=== PATIENT | male | born 1955 | race Two or more races ===

== ENCOUNTER 2020-12-15 09:56 | Inpatient (IN) | payer OTHER ==
[~2020-12-15] VITALS: Ht 205.7 cm; Wt 116.8 kg
[2020-12-15 10:49] LABS: Basophils # (auto) 0.2 10 ^3/uL (0-0.2); Basophils % (auto) 1.3 % (0.0-2.0); Eosinophils # (auto) 0.3 10 ^3/uL (0-0.8); Eosinophils % (auto) 2.3 % (0.0-7.0); Hematocrit 33.6 % (41.0-53.0); Hemoglobin 11.4 g/dL (13.5-17.5); Lymphocytes # (auto) 2.9 10 ^3/uL (0.4-5.4); Lymphocytes % (auto) 23.9 % (10.0-50.0); Mean Corpuscular Volume 91.2 fL (80.0-100.0); Monocytes % (auto) 7.9 % (0.0-12.0); Neutrophils # (auto) 7.8 10 ^3/uL (1.6-8.6); Neutrophils % (auto) 64.6 % (37.0-80.0); Nucleated Red Blood Cells % 0.1 %; Red Blood Cells 3.68 10^6/uL (4.5-5.90); Red Cell Distribution Width 15.1 % (11.8-14.3)
[2020-12-15 11:03] LABS: Albumin 3.1 g/dL (3.4-5.0); Anion Gap 4 (5-15); Blood Urea Nitrogen 9 mg/dL (7-18); Calcium 8.3 mg/dL (8.5-10.1); Carbon Dioxide 26 mmol/L (21-32); Chloride 111 mmol/L (98-107); Glucose 183 mg/dL (74-106); Potassium 3.3 mmol/L (3.5-5.1); Sodium 141 mmol/L (136-145)
[2020-12-15 11:07] LABS: Alanine Aminotransferase 19 U/L (16-61); Alkaline Phosphatase 135 U/L (45-117); Aspartate Aminotransferase 16 U/L (15-37); BUN/Creatinine Ratio 7.8; Bilirubin, Total 0.4 mg/dL (0.2-1.0); GFR African American 82 mL/min; GFR Non-African American 68 mL/min; Total Protein 7.7 g/dL (6.4-8.2)
[2020-12-15] MEDS ORDERED: POTASSIUM EFFERVESENT TAB 25 MEQ PO ONE ×2 (12:15→14:00)
[2020-12-15] MEDS ORDERED: FUROSEMIDE 40 MG/4 ML VIAL IV ONE (12:15)
[2020-12-15] MEDS ORDERED: AZITHROMYCIN 500MG/ 250ML 250 ML IV ONE (12:15)
[2020-12-15] MEDS ORDERED: cefTRIAXone 1GM/50ML D5W 50 ML IV ONE (12:15)
[2020-12-15] MEDS ORDERED: MORPHINE SULFATE INJECTION 2 MG/ML SYRG IV PRN (13:00)
[2020-12-15] MEDS ORDERED: NITROGLYCERIN 0.4 MG SL TAB SL PRN (13:00)
[2020-12-15 13:26] LABS: Urine Bacteria NONE SEEN /hpf (None Seen); Urine Blood TRACE /uL (Negative); Urine Specific Gravity 1.012 (1.001-1.035); Urine WBC 1 /hpf (0 - 3)
[2020-12-15] MEDS ORDERED: ALBUTEROL SULF HFA 90MCG INH 200DOSE IN PRN (13:45)
[2020-12-15] MEDS ORDERED: ENALAPRIL MALEATE 10 MG TAB PO ONE (14:00)
[2020-12-15] MEDS ORDERED: ACETAMINOPHEN 500 MG TAB PO PRN (14:00)
[2020-12-15] MEDS ORDERED: DEXTROSE (50%) 50ML SYRG IV PRN (14:00)
[2020-12-15] MEDS ORDERED: TEMAZEPAM 15 MG CAP PO PRN (14:00)
[2020-12-15] MEDS ORDERED: ENALAPRILAT 1.25 MG/ML-1ML VIAL IV PRN (14:00)
[2020-12-15] MEDS ORDERED: traMADol HCL 50 MG TAB PO PRN (14:00)
[2020-12-15] MEDS ORDERED: PROMETHAZINE HCL 25 MG/ML 1ML IV PRN (14:00)
[2020-12-15] MEDS ORDERED: LACTULOSE 20Gm/30ML SOLN PO PRN (14:00)
[2020-12-15] MEDS: CLINDAMYCIN 600MG IV 50 ML IV SCH ×2 (15:03→22:00)
[2020-12-15] MEDS: SODIUM CHLOR 0.9% PF (SALINE LOCK) 10ML VIAL/SYR IV SCH ×2 (15:03→22:00)
[2020-12-15] MEDS: ENALAPRIL MALEATE 10 MG TAB PO SCH ×2 (15:20→22:00)
[2020-12-15 16:05] VITALS: BP 183/99
[2020-12-15 17:30] VITALS: BP 157/83
[2020-12-15] MEDS: levoFLOXacin 500MG 100 ML IV SCH (17:31)
[2020-12-15] MEDS: ACCU-CHEK COMFORT CURVE STRIP VI SCH ×2 (17:32→22:00)
[2020-12-15] MEDS: InsuLIN REG 1unit/0.01ml Soln (100units/ml) SC SCH ×2 (17:35→22:00)
[2020-12-15 21:49] VITALS: BP 157/83
[2020-12-15 22:00] VITALS: BP 166/95
[2020-12-15] MEDS: CARVEDILOL 3.125 MG TAB PO SCH (22:00)
[2020-12-15] MEDS: FLORASTOR (S. BOULARDII) 250 MG CAP PO SCH (22:00)
[2020-12-15] MEDS ORDERED: BUDESONIDE (INHALATION) 180 MCG IH IN SCH (22:00)
[2020-12-15] MEDS: ENOXAPARIN SOD 40 MG/0.4 ML SYRINGE SC SCH (22:00)
[2020-12-16] VITALS (7 sets, daily range): BP systolic 146–173; BP diastolic 80–97
[2020-12-16 01:48] LABS: Albumin 2.7 g/dL (3.4-5.0); Potassium 3.8 mmol/L (3.5-5.1)
[2020-12-16 01:50] LABS: BUN/Creatinine Ratio 8.8
[2020-12-16 01:52] LABS: Bilirubin, Total 0.4 mg/dL (0.2-1.0); Total Protein 6.6 g/dL (6.4-8.2)
[2020-12-16] MEDS: SODIUM CHLOR 0.9% PF (SALINE LOCK) 10ML VIAL/SYR IV SCH ×3 (06:00→22:00)
[2020-12-16] MEDS: InsuLIN REG 1unit/0.01ml Soln (100units/ml) SC SCH ×4 (07:00→22:00)
[2020-12-16] MEDS: ACCU-CHEK COMFORT CURVE STRIP VI SCH ×4 (07:00→22:00)
[2020-12-16 07:04] LABS: Basophils # (auto) 0 10 ^3/uL (0-0.2); Basophils % (auto) 0.3 % (0.0-2.0); Eosinophils # (auto) 0.3 10 ^3/uL (0-0.8); Hematocrit 32.1 % (41.0-53.0); Hemoglobin 10.8 g/dL (13.5-17.5); Lymphocytes # (auto) 2.1 10 ^3/uL (0.4-5.4); Lymphocytes % (auto) 22.8 % (10.0-50.0); Mean Corpuscular Hemoglobin 30.3 pg (28.0-32.0); Mean Corpuscular Hgb Conc. 33.5 g/dL (32.0-36.0); Mean Corpuscular Volume 90.6 fL (80.0-100.0); Monocytes # (auto) 0.7 10 ^3/uL (0-1.3); Monocytes % (auto) 7.8 % (0.0-12.0); Neutrophils # (auto) 6.1 10 ^3/uL (1.6-8.6); Neutrophils % (auto) 66.1 % (37.0-80.0); Nucleated Red Blood Cells % 0.1 %; Red Blood Cells 3.55 10^6/uL (4.5-5.90); Red Cell Distribution Width 14.6 % (11.8-14.3); White Blood Cell 9.2 10^3/uL (4.4-10.8)
[2020-12-16 07:21] LABS: Albumin 2.8 g/dL (3.4-5.0); Calcium 8.2 mg/dL (8.5-10.1); Potassium 4.1 mmol/L (3.5-5.1)
[2020-12-16 07:29] LABS: BUN/Creatinine Ratio 10.8; Bilirubin, Total 0.4 mg/dL (0.2-1.0); Total Protein 7.1 g/dL (6.4-8.2)
[2020-12-16 08:16] LABS: Cholesterol 184 mg/dL (< 200)
[2020-12-16 08:19] LABS: HDL Cholesterol 48 mg/dL (40-59); LDL Cholesterol 119 mg/dL (< 100); Triglycerides 100 mg/dL (< 150)
[2020-12-16] MEDS: levoFLOXacin 500MG 100 ML IV SCH (09:18)
[2020-12-16] MEDS: FUROSEMIDE 40 MG/4 ML VIAL IV SCH (09:24)
[2020-12-16] MEDS: ENOXAPARIN SOD 40 MG/0.4 ML SYRINGE SC SCH (09:26)
[2020-12-16] MEDS: ENALAPRIL MALEATE 10 MG TAB PO SCH ×2 (09:27→22:00)
[2020-12-16] MEDS: CARVEDILOL 3.125 MG TAB PO SCH ×2 (09:28→21:30)
[2020-12-16] MEDS: ASPirin 81 mg TAB PO SCH (09:28)
[2020-12-16] MEDS: FLORASTOR (S. BOULARDII) 250 MG CAP PO SCH (09:37)
[2020-12-16] MEDS ORDERED: DexAMETHasone SOD PHOS 10MG/1ML VIAL INJ IV SCH (10:00)
[2020-12-16] MEDS ORDERED: POTASSIUM CHL 20 Meq TABLET PO SCH (10:00)
[2020-12-16] MEDS ORDERED: ASCORBIC ACID 1,000 MG TAB PO SCH (10:00)
[2020-12-16] MEDS ORDERED: CHOLECALCIFEROL (VITD3) 2,000 UNIT CAP/TAB PO SCH (10:00)
[2020-12-16] MEDS ORDERED: ENALAPRIL MALEATE 2.5 MG TAB PO SCH (10:00)
[2020-12-16] MEDS ORDERED: ZINC SULFATE 220mg CAP or TAB PO SCH (10:00)
[2020-12-16] MEDS ORDERED: IOPAMIDOL 76 % (ISOVUE-370) 100ML BTL IV ONE (12:07)
[2020-12-16 15:45] LABS: INR 1.08 (0.9-1.15)
[2020-12-16] MEDS: ATORVASTATIN 20 MG TAB PO SCH (22:00)
[2020-12-17 05:00] VITALS: BP 132/89
[2020-12-17] MEDS: SODIUM CHLOR 0.9% PF (SALINE LOCK) 10ML VIAL/SYR IV SCH ×3 (06:00→22:00)
[2020-12-17 06:53] LABS: Calcium 8.5 mg/dL (8.5-10.1); Potassium 3.9 mmol/L (3.5-5.1)
[2020-12-17 06:55] LABS: BUN/Creatinine Ratio 12.9
[2020-12-17] MEDS: ACCU-CHEK COMFORT CURVE STRIP VI SCH ×3 (07:00→22:00)
[2020-12-17] MEDS: InsuLIN REG 1unit/0.01ml Soln (100units/ml) SC SCH ×3 (07:17→22:00)
[2020-12-17 09:00] VITALS: BP 155/89
[2020-12-17] MEDS: CARVEDILOL 3.125 MG TAB PO SCH ×2 (09:17→22:00)
[2020-12-17] MEDS: ENOXAPARIN SOD 40 MG/0.4 ML SYRINGE SC SCH (09:18)
[2020-12-17] MEDS: ASPirin 81 mg TAB PO SCH (09:18)
[2020-12-17] MEDS: levoFLOXacin 500MG 100 ML IV SCH (09:20)
[2020-12-17] MEDS: ASCORBIC ACID 500 MG TAB PO SCH (09:30)
[2020-12-17] MEDS: FUROSEMIDE 40 MG/4 ML VIAL IV SCH (10:00)
[2020-12-17] MEDS: ENALAPRIL MALEATE 10 MG TAB PO SCH (10:00)
[2020-12-17] MEDS ORDERED: hydrALAZINE HCL 20 MG/ML VL IV PRN (11:30)
[2020-12-17] MEDS ORDERED: NIFEdipine ER 30 MG TAB PO ONE (11:30)
[2020-12-17] MEDS ORDERED: INSULIN LANTUS (GLARGINE) 1 /0.01ml (100units/ml) SC ONE (11:45)
[2020-12-17] MEDS ORDERED: DEXTROSE (50%) 50ML SYRG IV PRN (11:45)
[2020-12-17 12:45] VITALS: BP 154/81
[2020-12-17 16:41] VITALS: BP 153/87
[2020-12-17 22:00] VITALS: BP 146/80
[2020-12-17] MEDS: INSULIN LANTUS (GLARGINE) 1 /0.01ml (100units/ml) SC SCH (22:00)
[2020-12-17] MEDS: ATORVASTATIN 20 MG TAB PO SCH (22:00)
[2020-12-18 05:00] VITALS: BP 119/57
[2020-12-18 05:27] LABS: Potassium 3.8 mmol/L (3.5-5.1)
[2020-12-18 05:31] LABS: BUN/Creatinine Ratio 13.2; Calcium 8.4 mg/dL (8.5-10.1)
[2020-12-18] MEDS: SODIUM CHLOR 0.9% PF (SALINE LOCK) 10ML VIAL/SYR IV SCH ×3 (06:00→22:00)
[2020-12-18] MEDS: InsuLIN REG 1unit/0.01ml Soln (100units/ml) SC SCH ×4 (07:00→22:00)
[2020-12-18] MEDS: ACCU-CHEK COMFORT CURVE STRIP VI SCH ×4 (07:00→22:00)
[2020-12-18] MEDS: INSULIN LANTUS (GLARGINE) 1 /0.01ml (100units/ml) SC SCH ×2 (07:00→22:00)
[2020-12-18 08:00] VITALS: BP 142/76
[2020-12-18 08:56] VITALS: BP 142/76
[2020-12-18] MEDS: FUROSEMIDE 40 MG/4 ML VIAL IV SCH (09:34)
[2020-12-18] MEDS: ASPirin 81 mg TAB PO SCH (09:35)
[2020-12-18] MEDS: levoFLOXacin 500MG 100 ML IV SCH (09:35)
[2020-12-18] MEDS: CARVEDILOL 3.125 MG TAB PO SCH ×2 (09:36→22:00)
[2020-12-18] MEDS: ASCORBIC ACID 500 MG TAB PO SCH (09:37)
[2020-12-18] MEDS: ENOXAPARIN SOD 40 MG/0.4 ML SYRINGE SC SCH (09:37)
[2020-12-18] MEDS: NIFEdipine ER 30 MG TAB PO SCH (09:37)
[2020-12-18 13:00] VITALS: BP 136/79
[2020-12-18 17:00] VITALS: BP 138/73
[2020-12-18 22:00] VITALS: BP 142/85
[2020-12-18] MEDS: ATORVASTATIN 20 MG TAB PO SCH (22:00)
[2020-12-19 05:00] VITALS: BP 146/80
[2020-12-19] MEDS: SODIUM CHLOR 0.9% PF (SALINE LOCK) 10ML VIAL/SYR IV SCH ×3 (06:00→22:00)
[2020-12-19] MEDS: InsuLIN REG 1unit/0.01ml Soln (100units/ml) SC SCH ×4 (06:50→22:00)
[2020-12-19] MEDS: ACCU-CHEK COMFORT CURVE STRIP VI SCH ×4 (06:51→22:00)
[2020-12-19] MEDS: INSULIN LANTUS (GLARGINE) 1 /0.01ml (100units/ml) SC SCH ×2 (06:51→22:00)
[2020-12-19 07:21] LABS: Basophils # (auto) 0 10 ^3/uL (0-0.2); Basophils % (auto) 0.1 % (0.0-2.0); Eosinophils # (auto) 0.3 10 ^3/uL (0-0.8); Eosinophils % (auto) 2.9 % (0.0-7.0); Hematocrit 34.6 % (41.0-53.0); Hemoglobin 11.3 g/dL (13.5-17.5); Lymphocytes # (auto) 2.2 10 ^3/uL (0.4-5.4); Lymphocytes % (auto) 24.8 % (10.0-50.0); Mean Corpuscular Hemoglobin 29.7 pg (28.0-32.0); Mean Corpuscular Hgb Conc. 32.8 g/dL (32.0-36.0); Mean Corpuscular Volume 90.5 fL (80.0-100.0); Monocytes # (auto) 0.7 10 ^3/uL (0-1.3); Monocytes % (auto) 7.8 % (0.0-12.0); Neutrophils # (auto) 5.8 10 ^3/uL (1.6-8.6); Neutrophils % (auto) 64.4 % (37.0-80.0); Nucleated Red Blood Cells % 0.1 %; Red Blood Cells 3.82 10^6/uL (4.5-5.90); Red Cell Distribution Width 14.6 % (11.8-14.3)
[2020-12-19 07:34] LABS: BUN/Creatinine Ratio 15.7; INR 1.05 (0.9-1.15); Partial Thromboplastin Time 29.7 sec (23.0-31.2)
[2020-12-19 08:35] VITALS: BP 150/78
[2020-12-19] MEDS ORDERED: IODIXANOL 320MG/ML 100ML BTL IV ONE ×2 (09:50→10:43)
[2020-12-19] MEDS ORDERED: LIDOCAINE 2%HCL (LOCAL ANESTH.) INJ 20ML MDV ONE (09:50)
[2020-12-19] MEDS ORDERED: SODIUM CHL 0.9% 0 ML ONE (09:56)
[2020-12-19] MEDS ORDERED: MIDAZOLAM HCL 2MG/2ML 2ml VIAL (1mg/ml) ONE ×2 (09:56→10:53)
[2020-12-19] MEDS ORDERED: ANGIOMAX 250 MG VIAL IV ONE ×2 (09:56→10:56)
[2020-12-19] MEDS ORDERED: fentaNYL CITRATE 100 MCG/2 ML VL ONE ×2 (09:56→10:53)
[2020-12-19] MEDS: FUROSEMIDE 40 MG/4 ML VIAL IV SCH (10:00)
[2020-12-19] MEDS: ASCORBIC ACID 500 MG TAB PO SCH (10:00)
[2020-12-19] MEDS: levoFLOXacin 500MG 100 ML IV SCH (10:00)
[2020-12-19] MEDS ORDERED: diphenhdrAMINE HCL 50 MG/1 ML VL ONE (10:27)
[2020-12-19] MEDS ORDERED: hydrALAZINE HCL 20 MG/ML VL ONE (10:29)
[2020-12-19] MEDS ORDERED: SODIUM CHL 0.9% 100 ML ONE (10:58)
[2020-12-19] MEDS ORDERED: CLOPIDOGREL 300 MG TAB ONE (11:23)
[2020-12-19] MEDS: NIFEdipine ER 30 MG TAB PO SCH (12:00)
[2020-12-19] MEDS: ASPirin 81 mg TAB PO SCH (12:00)
[2020-12-19] MEDS: CARVEDILOL 3.125 MG TAB PO SCH ×2 (12:01→22:00)
[2020-12-19 16:35] VITALS: BP 144/78
[2020-12-19 22:00] VITALS: BP 150/77
[2020-12-19] MEDS: ATORVASTATIN 20 MG TAB PO SCH (22:00)
[2020-12-19] MEDS: ENALAPRIL MALEATE 10 MG TAB PO SCH (22:00)
[2020-12-19] MEDS: CILOSTAZOL 100 MG TAB PO SCH (22:00)
[2020-12-19] MEDS: APIXABAN 2.5 MG TAB PO SCH (22:00)
[2020-12-20 05:03] VITALS: BP 137/78
[2020-12-20] MEDS: SODIUM CHLOR 0.9% PF (SALINE LOCK) 10ML VIAL/SYR IV SCH ×3 (06:00→22:00)
[2020-12-20] MEDS: ACCU-CHEK COMFORT CURVE STRIP VI SCH ×4 (07:00→22:00)
[2020-12-20] MEDS: InsuLIN REG 1unit/0.01ml Soln (100units/ml) SC SCH ×4 (07:00→22:00)
[2020-12-20] MEDS: INSULIN LANTUS (GLARGINE) 1 /0.01ml (100units/ml) SC SCH ×2 (07:00→22:29)
[2020-12-20 07:29] LABS: BUN/Creatinine Ratio 16.8; Calcium 8.3 mg/dL (8.5-10.1); Potassium 3.7 mmol/L (3.5-5.1)
[2020-12-20 09:00] VITALS: BP 145/71
[2020-12-20] MEDS ORDERED: CLOPIDOGREL BISULFATE 75 MG TAB PO SCH (10:00)
[2020-12-20] MEDS: levoFLOXacin 500MG 100 ML IV SCH (10:18)
[2020-12-20] MEDS: CARVEDILOL 3.125 MG TAB PO SCH ×2 (10:20→22:28)
[2020-12-20] MEDS: ASCORBIC ACID 500 MG TAB PO SCH (10:21)
[2020-12-20] MEDS: ENALAPRIL MALEATE 10 MG TAB PO SCH ×2 (10:21→22:29)
[2020-12-20] MEDS: APIXABAN 2.5 MG TAB PO SCH ×2 (10:21→22:28)
[2020-12-20] MEDS: CILOSTAZOL 100 MG TAB PO SCH ×2 (10:21→22:28)
[2020-12-20 13:00] VITALS: BP 154/75
[2020-12-20 17:00] VITALS: BP 160/76
[2020-12-20 22:00] VITALS: BP 141/75
[2020-12-20] MEDS: ATORVASTATIN 20 MG TAB PO SCH (22:28)
[2020-12-21 05:00] VITALS: BP 141/73
[2020-12-21] MEDS: InsuLIN REG 1unit/0.01ml Soln (100units/ml) SC SCH ×4 (06:18→22:00)
[2020-12-21 06:22] LABS: Basophils # (auto) 0.1 10 ^3/uL (0-0.2); Basophils % (auto) 0.8 % (0.0-2.0); Eosinophils # (auto) 0.2 10 ^3/uL (0-0.8); Eosinophils % (auto) 2.5 % (0.0-7.0); Hematocrit 33.3 % (41.0-53.0); Hemoglobin 11.2 g/dL (13.5-17.5); Lymphocytes # (auto) 1.8 10 ^3/uL (0.4-5.4); Lymphocytes % (auto) 21.2 % (10.0-50.0); Mean Corpuscular Hemoglobin 30.5 pg (28.0-32.0); Mean Corpuscular Hgb Conc. 33.8 g/dL (32.0-36.0); Mean Corpuscular Volume 90.3 fL (80.0-100.0); Monocytes # (auto) 0.8 10 ^3/uL (0-1.3); Monocytes % (auto) 9.8 % (0.0-12.0); Neutrophils # (auto) 5.6 10 ^3/uL (1.6-8.6); Neutrophils % (auto) 65.7 % (37.0-80.0); Nucleated Red Blood Cells % 0.1 %; Red Blood Cells 3.68 10^6/uL (4.5-5.90); Red Cell Distribution Width 14.8 % (11.8-14.3); White Blood Cell 8.5 10^3/uL (4.4-10.8)
[2020-12-21] MEDS: SODIUM CHLOR 0.9% PF (SALINE LOCK) 10ML VIAL/SYR IV SCH ×3 (06:24→22:12)
[2020-12-21] MEDS: INSULIN LANTUS (GLARGINE) 1 /0.01ml (100units/ml) SC SCH ×2 (06:24→22:17)
[2020-12-21] MEDS: ACCU-CHEK COMFORT CURVE STRIP VI SCH ×4 (06:25→22:15)
[2020-12-21 06:33] LABS: INR 1.05 (0.9-1.15); Partial Thromboplastin Time 31.7 sec (23.0-31.2)
[2020-12-21 06:35] LABS: Potassium 3.7 mmol/L (3.5-5.1)
[2020-12-21 06:40] LABS: Calcium 8.4 mg/dL (8.5-10.1)
[2020-12-21 08:57] VITALS: BP 152/74
[2020-12-21] MEDS: levoFLOXacin 500MG 100 ML IV SCH (09:49)
[2020-12-21] MEDS: CARVEDILOL 3.125 MG TAB PO SCH ×2 (09:50→22:12)
[2020-12-21] MEDS: ENALAPRIL MALEATE 10 MG TAB PO SCH ×2 (09:51→22:14)
[2020-12-21] MEDS: APIXABAN 2.5 MG TAB PO SCH ×2 (10:00→16:46)
[2020-12-21] MEDS: ASCORBIC ACID 500 MG TAB PO SCH (10:00)
[2020-12-21] MEDS: CILOSTAZOL 100 MG TAB PO SCH ×2 (10:00→22:13)
[2020-12-21] MEDS ORDERED: LIDOCAINE 2%HCL (LOCAL ANESTH.) INJ 20ML MDV ONE (12:07)
[2020-12-21] MEDS ORDERED: IODIXANOL 320MG/ML 100ML BTL IV ONE ×2 (12:07→12:46)
[2020-12-21] MEDS ORDERED: fentaNYL CITRATE 100 MCG/2 ML VL ONE ×2 (12:45→13:15)
[2020-12-21] MEDS ORDERED: ANGIOMAX 250 MG VIAL IV ONE ×2 (12:45→13:51)
[2020-12-21] MEDS ORDERED: SODIUM CHL 0.9% 0 ML ONE (12:46)
[2020-12-21] MEDS ORDERED: MIDAZOLAM HCL 2MG/2ML 2ml VIAL (1mg/ml) ONE ×2 (12:46→13:15)
[2020-12-21] MEDS: DOXYCYCLINE 100MG/250ML 250 ML IV SCH (13:45)
[2020-12-21] MEDS ORDERED: hydrALAZINE HCL 20 MG/ML VL ONE ×2 (13:46→14:04)
[2020-12-21] MEDS ORDERED: SODIUM CHL 0.9% 100 ML ONE (13:51)
[2020-12-21] MEDS ORDERED: HYDROmorphone HCL 2 MG/ML VL ONE (14:03)
[2020-12-21] MEDS ORDERED: ONDANSETRON HCL 4 MG/2 ML VIAL ONE (16:00)
[2020-12-21 17:51] VITALS: BP 144/83
[2020-12-21 22:00] VITALS: BP 134/68
[2020-12-21] MEDS: DAKINS QUARTER STR 0.125% (NaHypochlorite) 473 ML TOPICAL SOL TOP SCH (22:00)
[2020-12-21] MEDS: ATORVASTATIN 20 MG TAB PO SCH (22:13)
[2020-12-22] MEDS: DOXYCYCLINE 100MG/250ML 250 ML IV SCH (01:45)
[2020-12-22 05:00] VITALS: BP 123/52
[2020-12-22] MEDS: SODIUM CHLOR 0.9% PF (SALINE LOCK) 10ML VIAL/SYR IV SCH (06:18)
[2020-12-22] MEDS: InsuLIN REG 1unit/0.01ml Soln (100units/ml) SC SCH ×2 (06:18→11:21)
[2020-12-22] MEDS: ACCU-CHEK COMFORT CURVE STRIP VI SCH ×2 (06:18→11:20)
[2020-12-22] MEDS: INSULIN LANTUS (GLARGINE) 1 /0.01ml (100units/ml) SC SCH (06:19)
[2020-12-22 07:15] LABS: BUN/Creatinine Ratio 17.5; Calcium 8.2 mg/dL (8.5-10.1)
[2020-12-22 07:51] VITALS: BP 150/70
[2020-12-22] MEDS: DAKINS QUARTER STR 0.125% (NaHypochlorite) 473 ML TOPICAL SOL TOP SCH (10:04)
[2020-12-22] MEDS: ASCORBIC ACID 500 MG TAB PO SCH (10:05)
[2020-12-22] MEDS: CILOSTAZOL 100 MG TAB PO SCH (10:06)
[2020-12-22] MEDS: CARVEDILOL 3.125 MG TAB PO SCH (10:06)
[2020-12-22] MEDS: APIXABAN 2.5 MG TAB PO SCH (10:06)
[2020-12-22] MEDS: ENALAPRIL MALEATE 10 MG TAB PO SCH (10:07)
[2020-12-22] MEDS ORDERED: ATOR40TA52 PO (12:16)
[2020-12-22] MEDS ORDERED: DAKI0.12 TOP (12:16)
[2020-12-22] MEDS ORDERED: APIX2.5T PO (12:16)
[2020-12-22] MEDS ORDERED: DOXY-340 PO (12:16)
[2020-12-22 13:03] VITALS: BP 150/70
== END 2020-12-22 14:20 | disposition home or self-care (01) | DRG 270 ==
LOC: ER 09:56 → EDUNIT# 09:56 → EDBD 09:56 → TELE 09:57 → TELE-WESTW 14:00
PROVIDERS: ADMIT Internal Medicine; ATTEND Internal Medicine
PROC: 047Q3ZZ Dilation of Left Anterior Tibial Artery, Percutaneous Approach (ICD-10-PCS; principal; 2020-12-21)
PROC: 04CQ3ZZ Extirpation of Matter from Left Anterior Tibial Artery, Percutaneous Approach (ICD-10-PCS; 2020-12-21)
PROC: 04CN3ZZ Extirpation of Matter from Left Popliteal Artery, Percutaneous Approach (ICD-10-PCS; 2020-12-21)
DX: E11.51 Type 2 diabetes mellitus with diabetic peripheral angiopathy without gangrene (principal); J18.9 Pneumonia, unspecified organism; I50.43 Acute on chronic combined systolic (congestive) and diastolic (congestive) heart failure; E44.1 Mild protein-calorie malnutrition; I16.1 Hypertensive emergency; J44.0 Chronic obstructive pulmonary disease with (acute) lower respiratory infection; I11.0 Hypertensive heart disease with heart failure; D63.8 Anemia in other chronic diseases classified elsewhere; E11.21 Type 2 diabetes mellitus with diabetic nephropathy; E66.9 Obesity, unspecified; E78.5 Hyperlipidemia, unspecified; E87.6 Hypokalemia; F17.210 Nicotine dependence, cigarettes, uncomplicated; I25.10 Atherosclerotic heart disease of native coronary artery without angina pectoris; Z20.822 Contact with and (suspected) exposure to COVID-19; Z68.28 Body mass index [BMI] 28.0-28.9, adult; Z82.49 Family history of ischemic heart disease and other diseases of the circulatory system; Z88.2 Allergy status to sulfonamides; E11.65 Type 2 diabetes mellitus with hyperglycemia; L97.529 Non-pressure chronic ulcer of other part of left foot with unspecified severity; L97.519 Non-pressure chronic ulcer of other part of right foot with unspecified severity; E11.621 Type 2 diabetes mellitus with foot ulcer; B95.62 Methicillin resistant Staphylococcus aureus infection as the cause of diseases classified elsewhere; I70.202 Unspecified atherosclerosis of native arteries of extremities, left leg
CPT/HCPCS: 36415; 37229; 70450; 71045; 75635; 80048; 80053; 80061; 81001; 82550; 82962; 83036; 83880; 84484; 85025; 85379; 85610; 85730; 87077; 87186; 87205; 87426; 93005; 93306; 93925; 96365; 96367; 96375; 99152; 99153; C1725; G0378; J0696; J1100; J1815; J1956; J2250; J2405; J3490; Q9967